=== PATIENT | female | born 1960 | race Caucasian/White ===

== ENCOUNTER 2016-11-28 09:46 | Outpatient (CLI) | payer BC ==
[~2016-11-28] VITALS: Ht 160 cm; Wt 86.2 kg
[2016-11-28] MEDS ORDERED: DEXAMETHASONE PF 10 MG/ML (DECADRON) VIAL ONE (09:55)
[2016-11-28 10:10] VITALS: BP 136/87
[2016-11-28 10:33] VITALS: BP 145/81
--- NOTE | 2016-11-28 15:02 | Pain Medicine-Procedure ---
Procedure Pre-Op/Post-Op Diagnosis Diagnosis: disc disorder with radiculopathy, cervical Indications for Operation Neck pain Attending Surgeon Carlos Procedure Date of Service: Nov 28, 2016 Procedure: Cervical Epidural Steroid Injection at the C7-T1 Level under Fluoroscopic Guidance Procedure: Pt was identified in the holding area. After risks, benefits, and alternatives were discussed with the patient, informed consent was obtained. An IV was placed by nursing staff prior to procedure. Patient was brought to the fluoroscopy suite and placed prone on the operating table. A time out was performed. Vital signs were monitored throughout the procedure. The patients neck was prepped and draped in the usual sterile fashion. The patients skin was anesthetized using 1% Lidocaine. A 18 gauge tuohy needle was inserted and advanced to the C7-T1 epidural space under fluoroscopic guidance using the loss of resistance technique. The needle position was confirmed in the AP and lateral view. After negative aspiration 2 ml of non-ionic contrast was injected under live fluoroscopy which showed good spread of the contrast in the epidural space at the appropriate level, there was no intravascular or subarachnoid spread. Again, after negative aspiration, 3 ml of preservative free normal saline and 10 mg of dexamethasone was injected. The needle was removed and the patient was transferred to the recovery area in stable condition. And after a brief period of observation was discharged to home in stable condition with no new neurologic deficits. Complications None PANTERA YBARRA MD Nov 28, 2016 3:02 pm
== END 2016-11-28 10:37 | disposition home or self-care (01) ==
LOC: CARD 09:46
PROVIDERS: ATTEND Pain Medicine Pain Medicine
DX: M50.13 Cervical disc disorder with radiculopathy, cervicothoracic region (principal)
CPT/HCPCS: 62321

== ENCOUNTER → 2017-04-06 | Outpatient (CLI) | payer BC ==
--- NOTE | 2017-04-06 19:12 | Diagnostic Imaging Report ---
INDICATION: Screening. The current study was also evaluated with a Computer Aided Detection (CAD) system. Comparison is made with prior examination from 04/02/16, 04/02/15, and 03/10/14. FINDINGS: There is a moderate amount of residual fibroglandular tissue bilaterally. There are a few benign-type calcifications. There is no dominant mass, spiculated lesion or suspicious calcification identified. Skin, nipples and axillae are unremarkable. IMPRESSION: ACR BI-RADS Category 2: Benign findings. Result letter will be mailed to the patient. Note: At least 10% of breast cancer is not imaged by mammography. Dictated by: Dictated on workstation # [id number]
== END ==
LOC: RAD 09:00
PROVIDERS: ATTEND Family Medicine
DX: Z12.31 Encounter for screening mammogram for malignant neoplasm of breast (principal)
CPT/HCPCS: 77067

== ENCOUNTER → 2017-06-30 | Outpatient (CLI) | payer BC ==
--- NOTE | 2017-06-30 17:44 | Diagnostic Imaging Report ---
PROCEDURE: MR imaging cervical spine without contrast. TECHNIQUE: Multiplanar, multisequence MR imaging of the cervical spine was performed without contrast. INDICATION: Neck pain. FINDINGS: The soft tissues demonstrate enlarged thyroid gland with no discrete mass seen by MRI. Correlate clinically and with thyroid ultrasound if needed. There is straightening of the cervical spine curvature which could be positional or related to muscle spasm. The alignment of the posterior spinal line is satisfactory. No widening of the predental space is seen. The vertebral body heights are preserved. There is disc desiccation at all levels. There is mild disc height loss at C6/7. The spinal cord has normal caliber, contour, and signal. There is very minimal prominence of the central canal around the C6/7 level, less than 1 mm in caliber, of questionable significance. This involves approximately two vertebral body height levels. The foramen magnum and upper cervical canal are widely patent. C2/3: There is no disc herniation, no spinal canal or foraminal stenosis. C3/4: There is no disc herniation, and no spinal canal stenosis. The foramina demonstrate severe stenosis on the left and minimal stenosis on the right side, predominantly related to facet arthropathy. C4/5: No disc herniation, no spinal canal stenosis. The foramina demonstrate mild stenosis bilaterally. C5/6: There is a disc spur complex with xvyd-ng-jyfnzvwa spinal canal stenosis reducing the AP dimension of the canal to 8.4 mm. No cord compression. The foramina demonstrate mild stenosis on the right and moderate stenosis on the left. C6/7: There is a spur disc complex, asymmetric to the left side, associated with mejn-jo-jiuzvcfs spinal canal stenosis reducing the AP dimension of the canal to 8.5 mm. The foramina demonstrate nwxahqzs-ch-yhgwwq stenosis bilaterally. C7/T1: No disc herniation, no spinal canal or foraminal stenosis. IMPRESSION: 1. There is mxlg-lx-eosmygnc spinal canal stenosis at C5/6 and C6/7 levels with no cord compression. 2. Multilevel foraminal stenosis is noted, most prominent at C6/7 level bilaterally. Dictated by: Dictated on workstation # [id number]
== END ==
LOC: RAD 15:14
PROVIDERS: ATTEND Pain Medicine Interventional Pain Medicine
DX: M48.02 Spinal stenosis, cervical region (principal)
CPT/HCPCS: 72141

== ENCOUNTER 2018-01-06 05:37 | Outpatient (CLI) | payer BC ==
[~2018-01-06] VITALS: Ht 160 cm; Wt 81.6 kg
[2018-01-06] MEDS ORDERED: ENAL10TA PO (15:02)
[2018-01-06] MEDS ORDERED: CARI350T27 PO (15:02)
[2018-01-06] MEDS ORDERED: LEVO175T5 PO (15:02)
== END 2018-01-06 15:04 ==
LOC: PREOP 05:37
PROVIDERS: ATTEND Surgery
DX: Z01.818 Encounter for other preprocedural examination (principal); R19.5 Other fecal abnormalities

== ENCOUNTER 2018-01-13 09:17 | Day surgery (SDC) | payer BC ==
[~2018-01-13] VITALS: Ht 160 cm; Wt 81.6 kg
[~2018-01-13 09:17] MED LIST: CARI350T27 PO; ENAL10TA PO; LEVO175T5 PO
--- OUTSIDE RECORDS SUMMARY | 2018-01-13 09:20 | XMS REPORT ---
Author Author SWETHA PATEL [facility] eClinicalWorks Address Unknown Phone Unavailable Care Team Providers Care Field Pipelines Supervisor Name Role Phone SWETHA PATEL CP Unavailable Allergies, Adverse Reactions, Alerts Substance Reaction Event Type N.K.D.A. Info Not Available Non Drug Allergy Problems Problem Type Condition Code Onset Dates Condition Status Assessment Otitis media of right ear in disease classified elsewhere H67.1 Active Problem Need for prophylactic vaccination and inoculation, Influenza V04.81 Active Medications Medication Code System Code Instructions Start Date End Date Status Dosage Synthroid [facility] [address]-71 Orally Once a day 1 tablet Medrol (Vipul) [facility] [address]-21 4 MG Orally per pack insert December 07, 2015 as directed Enalapril Maleate [facility] [address]-18 10 MG Orally Once a day 1 tablet Amoxicillin [facility] [address]-28 500 MG Orally every 12 hrs December 07, 2015 December 14, 2015 1 tablet Procedures Procedure Coding System Code Date Office Visit, Est Pt., Level 3 CPT-4 11530 December 07, 2015 TYMPANOMETRY CPT-4 12454 December 07, 2015 Vital Signs Date/Time: December 07, 2015 Cardiac Monitoring Heart Rate 80 bpm Temperature 98.0 F Weight 192.6 lbs Blood Pressure Diastolic 70 mmHg Blood Pressure Systolic 122 mmHg Results No Known Results Summary Purpose eClinicalWorks Submission
--- OUTSIDE RECORDS SUMMARY | 2018-01-13 09:20 | XMS REPORT ---
Author Author GUADALUPE VINCENT Organization [facility] Address [address] [place] [address] Care Team Providers Care Spot Facer Name Role Phone GUADALUPE VINCENT Unavailable PROBLEMS Type Condition ICD9-CM Code GCH30-GI Code Onset Dates Condition Status SNOMED Code Problem Need for prophylactic vaccination and inoculation, Influenza V04.81 Active [id number] ALLERGIES No Information ENCOUNTERS Encounter Location Date Diagnosis [place] [id number] [place] [phone] Mar, Encounter for immunization Z23 [facility] [id number] [place] [id number] Nov, Otitis media of right ear in disease classified elsewhere H67.1 [place] [id number] [place] [phone] Jun, [place] [address] [address] [place] [id number] [place] [phone] Jun, IMMUNIZATIONS Vaccine Route Administration Date Status TDAP (BOOSTRIX) IM Intramuscular Mar 17, 2017 Administered SOCIAL HISTORY Never Assessed REASON FOR VISIT immunizations araseli rn PLAN OF CARE VITAL SIGNS MEDICATIONS Unknown Medications RESULTS No Results PROCEDURES Procedure Date Ordered Result Body Site TDAP (BOOSTRIX) Mar 17, 2017 SINGLE IMMUNIZATION ADMIN Mar 17, 2017 INSTRUCTIONS MEDICATIONS ADMINISTERED No Known Medications MEDICAL (GENERAL) HISTORY Type Description Date Medical History Hypothyroidism Medical History hypertension Surgical History 1977 Surgical History spinal fusion 2010
[2018-01-13] MEDS ORDERED: NS IV 500 ML 500 ML IV PRN (09:24)
[2018-01-13] MEDS ORDERED: NS IV 500 ML 500 ML ONE (09:29)
[2018-01-13] MEDS ORDERED: LIDOCAINE JELLY 2% (XYLOCAINE) 5 ML TUBE MM PRN (09:30)
[2018-01-13 09:44] VITALS: BP 149/94
[2018-01-13] MEDS ORDERED: LIDOCAINE JELLY 2% (XYLOCAINE) 5 ML TUBE ONE (10:39)
[2018-01-13] MEDS ORDERED: fentaNYL INJECTION 100 MCG/2 ML AMP ONE ×3 (10:40→12:04)
[2018-01-13] MEDS ORDERED: MIDAZOLAM 2 MG/2 ML (VERSED) VIAL ONE ×8 (10:40→12:04)
[2018-01-13] MEDS: MIDAZOLAM 2 MG/2 ML (VERSED) VIAL IVP PRN ×4 (10:46→11:16)
[2018-01-13] MEDS: fentaNYL INJECTION 100 MCG/2 ML AMP IVP PRN ×2 (10:51→11:04)
--- NOTE | 2018-01-13 10:56 | Conscious Sedation/ASA ---
Conscious Sedation Pre-Proced Time Reviewed: 10:00 ASA Class: 2 Airway Mallampati Classification: ([place] appropriate class) I. II. III, IV Lungs Heart ASA score ASA 1: a normal healthy patient ASA 2: a patient with a mild systemic disease (mid diabetes, controlled hypertension, obesity ASA 3: a patient with a severe systemic disease that limits activity (angina , COPD, prior Myocardial infarction) ASA 4: a patient with an incapacitating disease that is a constant threat to life (CHF, renal failure) ASA 5: a moribund patient not expected to survive 24 hrs. (ruptured aneurysm) ASA 6: a declared brain patient whose organs are being harvested. For emergent operations, add the letter E after the classification Grade 2 Sedation Plan: Analgesia, Amnesia, Plan communicated to team members, Discussed options with patient/fam, Discussed risks with patient/fam Note The patient is an appropriate candidate to undergo the planned procedure, sedation, and anesthesia. The patient immediately re-assessed prior to indication. DEL MURILLO MD Jan 13, 2018 10:56 am
--- NOTE | 2018-01-13 10:57 | Progress Note-Pre Operative ---
Pre-Operative Progress Note H&P Reviewed The H&P was reviewed, patient examined and no changes noted. Date Seen by Provider: Jan 13, 2018 Time Seen by Provider: 10:00 Date H&P Reviewed: Jan 13, 2018 Time H&P Reviewed: 10:00 Pre-Operative Diagnosis: screening colonoscopy DEL MURILLO MD Jan 13, 2018 10:57 am
[2018-01-13] MEDS ORDERED: ONDANSETRON 4 MG/2 ML (SDV) Z0FRAN IV PRN (11:00)
[2018-01-13] MEDS ORDERED: HYDROcodone/APAP 5 MG/325 MG (LORTAB) TAB PO PRN (11:00)
[2018-01-13] MEDS ORDERED: morphine INJ 10 MG/ML 1ML (SYR OR VIAL) IV PRN (11:00)
[2018-01-13] MEDS ORDERED: ACETAMINOPHEN 325 MG TABLET/CAPLET (TYLENOL) PO PRN (11:00)
--- NOTE | 2018-01-13 11:36 | Progress Note-Post Operative ---
Post-Operative Progess Note Surgeon (s)/Microchip Specialist (s) Surgeon DEL MURILLO MD Microchip Specialist: none Pre-Operative Diagnosis screening colonoscopy Post-Operative Diagnosis chronic stage 2 ext and int hemorroid, HP polyp and chronic inflammation rectosigmoid, mild ascending colitis. Procedure & Operative Findings Date of Procedure 01/13/18 Procedure Performed/Findings Colonoscopy with bx Anesthesia Type CS Estimated Blood Loss Estimated blood loss (mL): minimal Specimens/Packing Specimens Removed asc colon, rectosigmoid inflammation and HP polyp DEL MURILLO MD Jan 13, 2018 11:36 am
--- NOTE | 2018-01-13 11:37 | Discharge Inst-Surgical ---
D/C Lap Instructions-LIDIA will call for f/u Activity as tolerated High Fiber Diet 25g or more per day Avoid Alcohol, Caffeine, Spicy [place] and Acid foods. Drink 64 fluid oz or more of fluids per day. Symptoms to Report: Fever over 101 degree F, Nausea/Vomiting If any problems/questions: Contact your physician or go to Emergency Room DEL MURILLO MD Jan 13, 2018 11:37 am
[2018-01-13 11:50] VITALS: BP 112/67
[2018-01-13 12:15] VITALS: BP 113/69
[2018-01-13 12:21] VITALS: BP 113/69
--- NOTE | 2018-01-13 18:11 | OPERATIVE REPORT ---
DATE OF SERVICE: 01/13/2018 ATTENDING PRIMARY CARE PHYSICIAN: Dr. Irby. PREOPERATIVE DIAGNOSIS: Screening colonoscopy and heme positive stools. POSTOPERATIVE DIAGNOSES: Chronic stage II external and internal hemorrhoids, small hyperplastic polyp of the rectosigmoid junction as well as a small area of patchy area of chronic inflammation. Mild ascending colitis. PROCEDURE: Colonoscopy with biopsy and polypectomy. SURGEON: Del Murillo. ANESTHESIA: Conscious sedation. ESTIMATED BLOOD LOSS: Minimal. FINDINGS: Chronic stage II external and internal hemorrhoids with no inflammation. There was a small hyperplastic polyp of the rectosigmoid junction approximately 2 mm in size and just proximal to this a patchy area of what appeared to be chronic inflammation. There was also a mild colitis identified with the right colon more in the area of the ascending colon. DISPOSITION: The patient tolerated the procedure well. INDICATIONS: The patient is a 57-year-old female in need of a screening colonoscopy. She states that she has had intermittent episodes of blood per rectum. She did have a Hemoccult test performed which did come back positive. She does not report any abdominal pain as well as no major issues with diarrhea nor constipation. She also does not report any family history of colon cancer. DESCRIPTION OF PROCEDURE: The patient was brought to the endoscopy suite, laid in the left lateral decubitus position. After adequate IV pain and sedating medications and conscious sedation anesthesia, a digital rectal examination was performed. Chronic stage II external and internal hemorrhoids were identified, which were not actively edematous nor inflamed and no bleeding. Normal sphincter tone was felt and there were no palpable masses. The endoscope was then intubated into the anus and rectum gently insufflated. The endoscope was then advanced through the valves of [place] of the rectum. At approximately the rectosigmoid junction, a small hyperplastic polyp approximately 2 mm in size was identified. This was biopsied and destroyed using forceps and electrocautery with visualization of good hemostasis. Just proximal to this was a patchy area of what appeared to be chronic inflammation. This was biopsied as well as using forceps and cautery. The endoscope was then advanced to the sigmoid colon where no diverticulosis identified. The endoscope was then advanced to the remainder of the descending, transverse and ascending colon. At the ascending colon, a mild colitis was identified. A biopsy was taken with forceps with visualization of good hemostasis. The endoscope was then advanced into the cecum where the inflammation also was apparent; however, no neoplasms identified. The endoscope was then slowly withdrawn while taking a second look and suctioning residual air with no additional findings. The patient tolerated the procedure well. We will await the biopsy results. It appears that she may have a very low level underlying chronic inflammatory bowel disease; however, asymptomatic. We will await the biopsy results; however, she continues to be asymptomatic. She may follow the normal criteria for screening colonoscopy, which will be every 10 years. However, if she becomes more symptomatic which includes more episodes of rectal bleeding or abdominal pain. She will need a colonoscopy sooner. Job ID: [id number] DocumentID: [id number] Dictated Date: 01/13/2018 11:47:05 Bar Machine Operator Production Date: 01/13/2018 18:10:32 Dictated By: DEL MURILLO MD
== END 2018-01-13 12:20 | disposition home or self-care (01) ==
LOC: ENDO 09:17
PROVIDERS: ATTEND Surgery
DX: Z12.11 Encounter for screening for malignant neoplasm of colon (principal); K63.5 Polyp of colon; K52.9 Noninfective gastroenteritis and colitis, unspecified; K64.1 Second degree hemorrhoids; I10 Essential (primary) hypertension; E04.9 Nontoxic goiter, unspecified; Z79.899 Other long term (current) drug therapy; Z87.891 Personal history of nicotine dependence
CPT/HCPCS: 88305

== ENCOUNTER → 2018-04-28 | Outpatient (CLI) | payer BC ==
--- NOTE | 2018-04-28 09:26 | Diagnostic Imaging Report ---
Indication: Right breast density. Patient presents for additional views. Correlation is made with recent screening study from 04/02/2018. 2-D, spot compression ML and conventional medial and lateral views. Additional views confirm a focal nodular density in the superior right breast approximately 7-8 cm from the nipple. This appears to be laterally located on the tomographic views. Impression: BI-RADS 0 Persistent nodular density in the upper outer right breast 7-8 cm from the nipple. Further evaluation with ultrasound is recommended. Dictated by: Dictated on workstation # [id number]
--- NOTE | 2018-04-28 09:51 | Diagnostic Imaging Report ---
Indication: Right breast density. Study is performed for further evaluation. Correlation is made with the diagnostic mammogram earlier the same day as well as the screening mammogram from 04/02/2018. Sonographic interrogation of the upper outer right breast was performed. At the 10 o'clock location of the right breast, 7 cm from the nipple, there is a circumscribed hypoechoic nodule measuring 6 mm x 3 mm x 4 mm. This likely accounts for the mammographic density. No internal vascularity is present. No posterior acoustic shadowing is seen. Borders are fairly well circumscribed. No other masses are identified. Impression: BI-RADS 3 Circumscribed hypoechoic nodule at the 10 o'clock location of the right breast 7 cm from the nipple, likely accounting for the mammographic density. This has fairly benign features. Even so, followup right mammogram and right breast ultrasound in 6 months is recommended to confirm stability. ACR BI-RADS Category 3: Probably benign findings. Result letter will be mailed to the patient. Note: At least 10% of breast cancer is not imaged by mammography. Dictated by: Dictated on workstation # [id number]
== END ==
LOC: RAD 08:21
PROVIDERS: ATTEND Nurse Practitioner Family
DX: N63.11 Unspecified lump in the right breast, upper outer quadrant (principal)

== ENCOUNTER → 2018-10-27 | Outpatient (CLI) | payer BC ==
--- NOTE | 2018-10-27 14:18 | Diagnostic Imaging Report ---
INDICATION: Right breast nodule. Patient presents for a 6 month followup. COMPARISON: 04/28/2018 and 04/02/2018. TECHNIQUE: Unilateral right 2D and 3D diagnostic mammography was performed. FINDINGS: Scattered densities in the right breast are noted. The nodular density in the upper aspect of the right breast at posterior depth appears stable. No new mass is seen. No suspicious microcalcifications are identified. IMPRESSION: Stable right mammogram. Ultrasound of the upper outer right breast to further evaluate the previously noted hypoechoic nodule is recommended and will be performed today. ACR BI-RADS Category 0: Incomplete. (Needs additional imaging evaluation). Result letter will be mailed to the patient. Note: At least 10% of breast cancer is not imaged by mammography. Dictated by: Dictated on workstation # [id number]
--- NOTE | 2018-10-27 17:49 | Diagnostic Imaging Report ---
INDICATION: Six-month followup right breast nodule. COMPARISON: Correlation is made with prior right breast ultrasound from 04/28/2018 as well as diagnostic mammogram from earlier the same day. FINDINGS: Previously noted circumscribed hypoechoic nodule at the 10 o'clock location of the right breast, 7 cm from the nipple, is again noted. This is stable in size at 5 mm x 3 mm x 3 mm. No internal vascularity is seen. No new mass is detected. IMPRESSION: Stable right breast nodule at the 10 o'clock location, when compared with exam of six months earlier. Additional followup in six months is recommended to confirm stability. ACR BI-RADS Category 3: Probably benign findings. Result letter will be mailed to the patient. Note: At least 10% of breast cancer is not imaged by mammography. Dictated by: Dictated on workstation # [id number]
== END ==
LOC: RAD 13:33
PROVIDERS: ATTEND Family Medicine
DX: N63.11 Unspecified lump in the right breast, upper outer quadrant (principal)

== ENCOUNTER → 2019-12-07 | Outpatient (CLI) | payer BC ==
--- NOTE | 2019-12-07 12:05 | Diagnostic Imaging Report ---
PROCEDURE: US Non-ob pelvis comp/trans. TECHNIQUE: Multiple realtime grayscale images were obtained of the pelvis in various projections endovaginally. Transabdominal imaging was also performed. INDICATION: Irregular bleeding. Uterus is anteverted measuring 6.7 x 3.0 x 3.6 cm. Endometrium is 4 mm in thickness. No myometrial mass is detected. Ovaries are not visualized. No adnexal mass or free fluid is detected. IMPRESSION: Unremarkable pelvic ultrasound. The ovaries were not visualized. Dictated by: Dictated on workstation # [id number]
== END ==
LOC: RAD 09:55
PROVIDERS: ATTEND Surgery
DX: N95.0 Postmenopausal bleeding (principal)
CPT/HCPCS: 76830; 76856

== ENCOUNTER → 2020-02-27 | Outpatient (CLI) | payer BC ==
--- NOTE | 2020-02-28 12:33 | Diagnostic Imaging Report ---
INDICATION: Routine screening. Comparison is made with prior mammogram 04/02/2018 and 04/06/2017. 2-D and 3-D bilateral screening mammography was performed with CAD. Both breasts are heterogeneously dense, limiting the sensitivity of mammography. The parenchymal pattern is stable. No dominant mass or malignant appearing microcalcifications are seen. Axillae are unremarkable. IMPRESSION: BI-RADS Category 1. No mammographic features suspicious for malignancy are identified. Dictated by: Dictated on workstation # [id number]
== END ==
LOC: RAD 14:15
PROVIDERS: ATTEND Internal Medicine
DX: Z12.31 Encounter for screening mammogram for malignant neoplasm of breast (principal)
CPT/HCPCS: 77063; 77067

== ENCOUNTER → 2020-12-07 | Outpatient (CLI) | payer BC ==
[~2020-12-07] MED LIST changes: -ENAL10TA PO; +ENAL10TA16 PO
--- NOTE | 2020-12-07 11:31 | Diagnostic Imaging Report ---
PROCEDURE: MR imaging cervical spine without contrast. TECHNIQUE: Multiplanar, multisequence MR imaging of the cervical spine was performed without contrast. INDICATION: Chronic neck pain. COMPARISON: Correlation is made with prior MRI of the cervical spine from 06/30/2017. FINDINGS: There is some straightening of the normal cervical lordotic curvature. Vertebral body marrow signal is normal. There is generalized degenerative disc disease with desiccation. There is some disc space narrowing at C5-C6 and C6-C7 levels, similar to prior exam. Cervical cord is unremarkable. Craniocervical junction is unremarkable. C2-C3: No central canal or neuroforaminal stenosis is identified. C3-C4: Moderate left neuroforaminal stenosis is seen. Right neuroforamen is patent. Central canal is patent. C4-C5: Endplate osteophytes indent the ventral thecal sac. No significant central canal or neuroforaminal stenosis is identified. C5-C6: Broad-based disc/osteophyte complex indents the ventral thecal sac. This does result in moderate central canal narrowing. There is significant left neuroforaminal narrowing and moderate right neuroforaminal narrowing. C6-C7: Broad-based disc/osteophyte complex indents the ventral thecal sac. This results in moderate central canal stenosis. There is moderate neuroforaminal stenosis bilaterally. C7-T1: No central canal or neuroforaminal stenosis is seen. Paraspinous tissues are unremarkable. IMPRESSION: Cervical spondylosis with multilevel central canal and neuroforaminal narrowing, described level by level above. Overall appearance is similar to perhaps slightly progressed when compared with exam from 2017. Dictated by: Dictated on workstation # [id number]
== END ==
LOC: RAD 08:45
PROVIDERS: ATTEND Nurse Practitioner
DX: M47.22 Other spondylosis with radiculopathy, cervical region (principal); M48.02 Spinal stenosis, cervical region
CPT/HCPCS: 72141

== ENCOUNTER → 2021-04-10 | Outpatient (CLI) | payer BC ==
--- NOTE | 2021-04-10 08:57 | Diagnostic Imaging Report ---
Indication: Routine screening. Comparison is made with prior mammogram from 02/27/2020 and 04/02/2018. 2-D and 3-D bilateral screening mammography was performed with CAD. Both breasts remain heterogeneously dense, limiting the sensitivity of mammography. Overall parenchymal pattern appears to be stable. No dominant mass or malignant-appearing microcalcifications are seen. Axillae are unremarkable. IMPRESSION: BI-RADS Category 1 No mammographic features suspicious for malignancy are identified. ACR BI-RADS Category 1: Negative. Result letter will be mailed to the patient. Note: At least 10% of breast cancer is not imaged by mammography. Dictated by: Dictated on workstation # [id number]
== END ==
LOC: RAD 07:33
PROVIDERS: ATTEND Surgery
DX: Z12.31 Encounter for screening mammogram for malignant neoplasm of breast (principal)
CPT/HCPCS: 77063; 77067

== ENCOUNTER 2021-07-17 09:00 | Outpatient (RCR) | payer BC | END 2021-08-09 | disposition home or self-care (01) | PROVIDERS: ATTEND Pain Medicine Interventional Pain Medicine | DX: M47.22 Other spondylosis with radiculopathy, cervical region (principal); M50.30 Other cervical disc degeneration, unspecified cervical region; M48.02 Spinal stenosis, cervical region ==

== ENCOUNTER → 2022-04-17 | Outpatient (CLI) | payer BC ==
--- NOTE | 2022-04-17 21:09 | Diagnostic Imaging Report ---
INDICATION: Screening. EXAMINATION: 3D bilateral screening mammogram with CAD. The current study was also evaluated with a Computer Aided Detection (CAD) system. COMPARISON: This study was compared to the prior exams of 04/10/2021, 02/27/2020 and 04/02/2018. At this time there are no current complaints. FINDINGS: The fibroglandular tissue in both breasts is heterogeneously dense. This does limit the sensitivity of this exam. When compared to the previous study there does not appear to have been any significant change. There is no primary or secondary sign of malignancy noted. IMPRESSION: There is no evidence for malignancy. ACR BI-RADS Category 1: Negative. Result letter will be mailed to the patient. Note: At least 10% of breast cancer is not imaged by mammography. Dictated by: Dictated on workstation # [id number]
== END ==
LOC: RAD 14:28
PROVIDERS: ATTEND Surgery
DX: Z12.31 Encounter for screening mammogram for malignant neoplasm of breast (principal)
CPT/HCPCS: 77063; 77067

== ENCOUNTER 2022-11-06 08:42 | Outpatient (RCR) | payer BC ==
[~2022-11-06 08:42] MED LIST changes: -ENAL10TA16 PO; +ENLP10T PO
== END 2022-11-07 | disposition home or self-care (01) ==
PROVIDERS: ATTEND Internal Medicine
DX: M54.2 Cervicalgia (principal); I10 Essential (primary) hypertension

== ENCOUNTER 2022-12-04 08:00 | Outpatient (RCR) | payer BC | END 2022-12-07 | disposition home or self-care (01) | PROVIDERS: ATTEND Internal Medicine | DX: M54.2 Cervicalgia (principal) ==

== ENCOUNTER → 2023-04-20 | Outpatient (CLI) | payer MEDICARE ==
--- NOTE | 2023-04-20 10:44 | Diagnostic Imaging Report ---
INDICATION: Routine screening. COMPARISON: 04/17/2022 and 04/10/2021. TECHNIQUE: 2D and 3D bilateral screening mammography was performed with CAD. FINDINGS: Both breasts are heterogeneously dense, limiting the sensitivity of mammography. The parenchymal pattern is stable. No dominant mass or malignant-appearing microcalcifications are seen. There are benign calcifications on the right. The axillae are unremarkable. IMPRESSION: No mammographic features suspicious for malignancy are identified. ACR BI-RADS Category 2: Benign findings. Result letter will be mailed to the patient. Note: At least 10% of breast cancer is not imaged by mammography. Dictated by: Dictated on workstation # [id number]
== END ==
LOC: RAD 08:06
PROVIDERS: ATTEND Nurse Practitioner
DX: Z12.31 Encounter for screening mammogram for malignant neoplasm of breast (principal)
CPT/HCPCS: 77063; 77067

== ENCOUNTER 2023-06-08 08:25 | Outpatient (RCR) | payer MEDICARE | END 2023-06-09 | disposition home or self-care (01) | PROVIDERS: ATTEND Internal Medicine | DX: M54.2 Cervicalgia (principal); M25.511 Pain in right shoulder; M25.512 Pain in left shoulder; I10 Essential (primary) hypertension ==

== ENCOUNTER 2023-06-22 09:00 | Outpatient (RCR) | payer MEDICARE | END 2023-06-22 17:00 | disposition home or self-care (01) | PROVIDERS: ATTEND Internal Medicine | DX: M54.2 Cervicalgia (principal); M25.511 Pain in right shoulder; M25.512 Pain in left shoulder; I10 Essential (primary) hypertension ==

== ENCOUNTER → 2023-07-20 | Outpatient (CLI) | payer MEDICARE ==
--- NOTE | 2023-07-20 11:25 | Diagnostic Imaging Report ---
PROCEDURE: Ultrasound abdomen complete. TECHNIQUE: Multiple real-time grayscale images were obtained of the abdomen in various projections. INDICATION: Elevated liver function tests. FINDINGS: Liver measures 17 cm in size. The portal vein is patent and shows normal direction of flow. No liver mass is identified. Gallbladder is without stones or sludge. There is no wall thickening or biliary ductal dilatation. Pancreas is unremarkable. Spleen measures 9.5 cm. Aorta is nonaneurysmal. IVC is patent. Right kidney measures 10.5 cm in length, and left kidney measures 8.5 cm in length. No calculi or hydronephrosis is detected. There is no ascites. IMPRESSION: Unremarkable abdominal ultrasound. Dictated by: Dictated on workstation # [id number]
== END ==
LOC: RAD 09:19
PROVIDERS: ATTEND Internal Medicine
DX: R74.01 Elevation of levels of liver transaminase levels (principal)
CPT/HCPCS: 76700